=== PATIENT | male | born 1955 | race Caucasian/White ===

== ENCOUNTER 2019-04-17 22:03 | Emergency (ER) | payer BC, SELFPAY ==
[2019-04-17] VITALS (12 sets, daily range): BP systolic 129–148; BP diastolic 75–88; PULSE 72–87; RESP 14–25; TEMP 37; O2SAT 95–97
--- NOTE | 2019-04-17 21:51 | ED.GENADUL_ITS ---
Discharge Plan Disposition Patient Disposition: HOME Condition: Good Discharge Details Chief Complaint: AMS/LOC Clinical Impression: Concussion, Dehydration, Contusion Primary Care Provider: Ana Rosa,Local ED Provider: Jose Maria Nguyen Home Meds and New Rx's Prescriptions: No Action No Known Home Meds RF: 0 Discharge Instructions Instructions: Concussion (ED) Additional Instructions: Please make sure you are drinking 8 to 10 cups of water per day at minimum. Be sure to avoid any activities that could cause trauma to your head in the next week. If you notice any worsening of your symptoms, or any new symptoms such as vomiting, diarrhea, fever, chills, shortness of breath, chest pain, numbness, weakness, or fainting , please return immediately to the emergency department for reevaluation. Please follow up with your primary care provider as soon as possible for reassessment and reevaluation. As always, it was a pleasure participating in your medical care today. 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 Patient has had 2 to 3 days of rigorous biking on the [place], tonight he was at the [email or web address], and after a few beers he passed out. It is unknown if he hit his head. He does have a notable abrasion over his left elbow and left shoulder. No evidence of significant cranial trauma. No neurologic deficits. Because of the patient's recent alcohol, and mild fogginess of events I am concerned for concussion and subsequent significant trauma to the head. We will get a CT scan of the head neck, rehydrate, evaluate for any significant lab abnormality and reassess. 11:49 PM Laboratory work-up is returned relatively benign, bilirubin is up to 2.1, however the patient does have past medical history of Gilbert's disease which correlates well clinically. He has no abdominal tenderness on exam. No other significant abnormalities on labs. Troponin negative, EKG benign. CT scan of the head neck is negative for any acute process fracture or bleed per virtual radiology. On reassessment the patient feels very well, repeat neurologic exam continues to demonstrate normal neurologic exam, no deficits. Signs and symptoms are clinically consistent with mild dehydration coupled with a can conc ussion from falling and hitting his head. With the patient's notable improvement of his symptoms, a benign work-up, I feel he can be safely discharged home. He is with his 2 friends were on the trip with him, and I will be going home together. We discussed red flags which to return, instructions and precautions for his concussion, and the importance of close follow-up. I have extensively reviewed the treatment plan and discharge instructions with the patient and their family. I have addressed all patient concerns at this time. The patient and family was made aware of what symptoms to monitor for that would warrant a return to the emergency department. Discussed the plan with the patient and family, they demonstrate verbal understanding and agreement with our assessment and plan at this time. EKG 22: 08 Rate 72, intervals normal, sinus rhythm, no significant ST elevations or depressions, no significant T wave inversions, no Q waves. FINDINGS: Vertebrae: No acute fracture. Normal alignment. Vertebral body heights preserved. Discs/Spinal canal/Neural foramina: Typical for age. Soft tissues: Unremarkable. Lungs: Lung apices are unremarkable as visualized. IMPRESSION: No acute findings. Thank you for allowing us to participate in the care of your patient. Dictated and Authenticated by: Smooth Mcnair MD FINDINGS: Brain: Typical for age. No hemorrhage. No evidence of acute infarct. No mass. Ventricles: No ventriculomegaly. Bones/joints: Unremarkable. Sinuses: No sinus fluid. Mastoid air cells: Unremarkable. Soft tissues: Unremarkable. IMPRESSION: No acute intracranial abnormality. HPI General Date/Time Provider Initiated Documentation: 04/17/19 22:05 . 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 Patient and EMS report that for the last 2 to 3 days he has been doing a notable amount of [place] the [place]. He had a good day today, no falls or trauma, then he was at the [email or web address] this evening when he was sitting on a seat, and after a few beers syncopized, he did hit his left elbow and left shoulder. He denies any significant pain in these areas aside for the mild abrasion. Tetanus status is up-to-date. Patient does not recall the event, and states that the events of this evening are slightly fuzzy. He denies any significant headache, numbness tingling or weakness. He denies any chest pain chest heaviness or chest pressure. He denies any nausea vomiting or diarrhea. He denies any blood thinner use. He has no other complaints at this time. No other modifying f actors. Upon EMS arrival the patient's blood glucose is normal, vital signs are stable. 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 3.ENT: Atraumatic external nose and ears. Moist MM. Neck: Symmetric, trachea midline, No thyromegaly. Patient demonstrates intact dentition with no signs of tooth avulsion or fracture, no signs of jaw deformity, no evidence of a LeFort's fracture, with an intact palate, nose and orbital region. There is no evidence of a nasal septal hematoma. No proptosis. Jaw closes symmetrically. Airway is clear. There is no evidence of raccoon eyes, ingram sign, CSF rhinorrhea, mastoid tenderness, cranial crepitus, hemotympanum, exophthalmos, or hyphema. 4.CVS: Regular rate and rhythm, Normal s1 and s2. No murmurs, carotid bruits, rubs, or gallops. Radial pulses 2+ bilaterally and symmetric. Dorsalis pedis pulses 2+ bilaterally and symmetric. 2+ capillary refill. No evidence of distant heart sounds. No extremity edema. No evidence of gross hemorrhage. 5.RESP: Airway clear, no obstructions. No abrasions or ecchymosis. Chest movement symmetric with respirations. No chest wall tenderness. Trachea midline. No crepitus. No step offs. No paradoxical movements. Lungs are clear to auscultation bilaterally. No rales, rhonchi, wheezing or stridor. Breath sound symmetric. No Sucking chest wounds. No clinical evidence of significant chest trauma. 6.GI: Soft, nondistended, nontender. Bowel tones normoactive. No masses or organomegaly. No ecchymosis or abrasions. No periumbilical ecchymosis or seatbelt sign. No flank or CVA tenderness. No clinical signs of significant trauma.No clinical evidence of significant abdominal trauma. 7.MSK: No gross deformities or discolorations or lesions. Tolerates full range of motion of extremities without tenderness. All compartments of upper and lower extremities are soft with no tenderness. Vascular exam demonstrates brisk capillary refill and intact pulses in all extremities. Pelvic exam demonstrates a stable pelvis, nontender to lateral compression and palpation of symphysis pubis. No clinical evidence of significant musculoskeletal trauma. No midline tenderness to palpation over the CTLS spine. Normal ROM in flexion, extension, side bend, and rotation. Patient has +5 out of 5 strength in the lower extremities in dorsiflexion and plantarflexion, knee flexion and extension, hip flexion and extension. There is +2 over 2 dorsalis pedis pulses bilaterally. There is normal sensation to the skin with light touch at the foot, knee, and hip. Normal saddle sensation. Good sensation over the deep sural nerve area bilaterally. Rectal exam deferred. Reflexes are +2 over 4 in the patellar reflex bilaterally. +5 out of 5 strength in the medial, ulnar, radial nerve distribution bilaterally in the hands as well as intact light touch sensation to these dermatomes on the hands 8.Skin: Warm, Dry. Mild abrasion over the left elbow and left shoulder. No laceration. 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 Sensation grossly intact, no focal neurologic deficits. All 6 cardinal planes of vision are fully intact. No evidence of rotatory or vertical nystagmus. The patient demonstrated a normal [id number], good dexterity. There was no evidence of dysdiadochokinesia. Patient was able to ambulate without difficulty. There was no wide-based gait. Romberg, and [id number] are both normal on testing. Sensation was intact bilaterally as well as muscle strength bilaterally for all extremities. Patient was able to verbalize butter cup with no slurring, or miss pronunciation. 10.Psych: (AAO) x3. Appropriate mood and affect
[2019-04-17 22:25] LABS: Abs Immature Grans 0.02 k/cumm (0.0-0.09); Absolute Basophil Count 0.03 k/cumm (0.0-0.2); Absolute Eosinophil Count 0.15 k/cumm (0.0-0.7); Absolute Lymphocyte Count 1.55 k/cumm (1.2-3.4); Absolute Monocyte Count 0.54 k/cumm (0.11-0.7); Absolute Neutrophil Count 5.82 k/cumm (1.2-6.7); Basophils % 0.4; Eosinophils % 1.8; HCT 39.4 % (40.0-50.0); HGB 13.7 g/dL (13.5-17.5); Immature Grans % 0.2; Lymphocytes % 19.1; Mean Corp. HGB Concentration 34.8 g/dL (32.0-36.0); Mean Corpuscular Hemoglobin 32.5 pg (27.0-33.0); Mean Corpuscular Volume 93.4 fL (80-95); Mean Platelet Volume 9.1 fL (8.0-11.0); Monocytes % 6.7; Neutrophils % 71.8; Platelet Count 230 x1000/uL (130-400); RBC 4.22 m/cumm (4.50-6.00); RBC Distribution Width 12.9 % (11.8-14.1); White Blood Cell Count 8.11 k/cumm (4.4-10.8)
[2019-04-17 22:46] LABS: ALT 33 U/L (12-78); AST 25 U/L (15-37); Albumin 3.9 g/dL (3.4-5.0); Alkaline Phosphatase 71 U/L (46-116); Anion Gap 12.1 mmol/L (3-11); BUN 26 mg/dL (7-18); Bilirubin, Total 2.1 mg/dL (0.2-1.0); CO2 26.9 mmol/L (21.0-32.0); CREATININE 1.17 mg/dL (0.70-1.30); Calcium 8.9 mg/dL (8.5-10.1); Chloride 100 mmol/L (98-107); Glucose 135 mg/dL (70-100); Potassium 3.9 mmol/L (3.5-5.1); Sodium 139 mmol/L (136-145); Total Protein 7.5 g/dL (6.4-8.2)
[2019-04-17 22:52] LABS: ETHANOL BLOOD < 3.0 mg/dL (<3); Troponin I < 0.05 ng/mL (0.00-0.06)
--- NOTE | 2019-04-17 23:07 | DI.CT_ITS ---
SYMPTOM/DIAGNOSIS: FELL, ETOH, CONCUSSION NONCONTRAST HEAD CT: A noncontrast examination was performed. No priors. The ventricles and sulci are consistent with the patient's age. No intracranial hemorrhage, acute midline shift or mass effect is identified. The ventricles are intact. The basilar cisterns are patent. No fluid levels are seen in the visualized sinuses. There is mild mucosal thickening in the ethmoid air cells and sphenoid sinuses. The mastoid air cells are well pneumatized. The calvarium is intact. IMPRESSION: No acute intracranial process. CERVICAL SPINE CT: Multiple contiguous axial images of the cervical spine were obtained. Sagittal and coronal reformatted images were evaluated on the Siemens work station. No acute fractures or subluxations of the cervical spine are seen. There are mild to moderate degenerative changes seen throughout the cervical spine. The prevertebral soft tissues are unremarkable. The lung apices are clear. IMPRESSION: No acute fracture or subluxation in the cervical spine.
[2019-04-17] MEDS: Normal Saline 1,000 ML 1000 ML IV (23:18)
--- NOTE | 2019-04-17 23:28 | NUR.NOTE ---
Abrasion to left elbow cleansed with NS and covered with bandaid. No drainage noted. no distress noted. pt tolerated procedure well without incident.Nursing Note:
--- NOTE | 2019-04-17 23:36 | DI.VRAD_ITS ---
EXAM: CT Head Without Contrast EXAM DATE/TIME: 04/17/2019 10:04 PM CLINICAL HISTORY: 64 years old, male; Injury or trauma; Initial encounter; Blunt trauma (contusions or hematomas); Consciousness not specified; Injury date: 04/17/2019; Injury details: Fall, ETOH, concussion TECHNIQUE: Imaging protocol: Computed tomography images of the head without contrast. Radiation optimization: All CT scans at this facility use at least one of these dose optimization techniques: automated exposure control; mA and/or kV adjustment per patient size (includes targeted exams where dose is matched to clinical indication); or iterative reconstruction. COMPARISON: No relevant prior studies available. FINDINGS: Brain: Typical for age. No hemorrhage. No evidence of acute infarct. No mass. Ventricles: No ventriculomegaly. Bones/joints: Unremarkable. Sinuses: No sinus fluid. Mastoid air cells: Unremarkable. Soft tissues: Unremarkable. IMPRESSION: No acute intracranial abnormality. EXAM: CT Cervical Spine Without Contrast EXAM DATE/TIME: 04/17/2019 10:04 PM CLINICAL HISTORY: 64 years old, male; Injury or trauma; Initial encounter; Blunt trauma (contusions or hematomas); Consciousness not specified; Injury date: 04/17/2019; Injury details: Fall, ETOH, concussion TECHNIQUE: Imaging protocol: Computed tomography images of the cervical spine without contrast. Radiation optimization: All CT scans at this facility use at least one of these dose optimization techniques: automated exposure control; mA and/or kV adjustment per patient size (includes targeted exams where dose is matched to clinical indication); or iterative reconstruction. COMPARISON: No relevant prior studies available. FINDINGS: Vertebrae: No acute fracture. Normal alignment. Vertebral body heights preserved. Discs/Spinal canal/Neural foramina: Typical for age. Soft tissues: Unremarkable. Lungs: Lung apices are unremarkable as visualized. IMPRESSION: No acute findings. Dictated and Authenticated by: Smooth Mcnair MD. Ordering:ALLISON Moise MD
== END 2019-04-18 00:15 | disposition home or self-care (01) ==
PROVIDERS: Emergency Provider Student in an Organized Health Care Education/Training Program; PCP Internal Medicine
DX: R55 Syncope and collapse (principal); S50.312A Abrasion of left elbow, initial encounter; S40.212A Abrasion of left shoulder, initial encounter; S06.0X1A Concussion with loss of consciousness of 30 minutes or less, initial encounter; W19.XXXA Unspecified fall, initial encounter; E86.0 Dehydration
CPT/HCPCS: 36415; 80053; 93005; 96360; 99285; 70450; 72125; 80320; 84484; 85025; 93010; 99284